=== PATIENT | male | born 1995 | race Caucasian/White ===

== ENCOUNTER 2018-11-30 17:21 | Emergency (ER) | payer SELFPAY ==
[2018-11-30 17:41] VITALS: BP 128/66
--- NOTE | 2018-11-30 17:54 | UC ---
Eye Complaint HPI - HPI Summary HPI Summary: 23 y/o male presents to the urgent care c/o left eye redness since yesterday. However this morning he woke up w/ yellowish crusting and mild swelling in his lower eyelid. Then it has been watery. Pt denies fever, MACKEY, eye pain, photophobia, visual disturbance, URI, SOB, chest pain, dizziness, abdominal pain , N/V/d. - History of Current Complaint Chief Complaint: UCEye Stated Complaint: LEFT EYE COMPLAINT Time Seen by Provider: 11/30/18 17:34 Hx Obtained From: Patient Onset/Duration: Gradual Onset, Lasting Days - 1 day, Still Present, Worse Since - this morning Timing: Constant Severity Initially: Mild Severity Currently: Mild Pain Intensity: 0 Pain Scale Used: 0-10 Numeric Location of Injury: Conjunctiva - left eye redness w/ yellowish drainage Character: Foreign Body Sensation Aggravating Factor(s): Blinking Alleviating Factor(s): Nothing Associated Signs And Symptoms: Positive: Drainage (Purulent) - yellowish, Swelling - mild. Negative: Photophobia, Drainage (Clear), Fever - Risk Factors Penetrating Injury Risk Factor: Negative - Allergies/Home Medications Allergies/Adverse Reactions: Allergies Allergy/AdvReac Type Severity Reaction Status Date / Time No Known Allergies Allergy Verified 11/30/18 17:39 PMH/Surg Hx/FS Hx/Imm Hx Previously Healthy: Yes - Pt denies PMHX - Surgical History Surgical History: None - Family History Known Family History: Positive: Diabetes - Social History Occupation: Employed Full-time Lives: With Family Alcohol Use: Occasionally Substance Use Type: None Smoking Status (MU): Never Smoked Tobacco Review of Systems All Other Systems Reviewed And Are Negative: Yes Constitutional: Positive: Negative Skin: Positive: Negative Eyes: Positive: Drainage - yellowish from left eye this morning wehn he woke up , Eye Redness - left eye and mild swelling ENT: Positive: Negative Respiratory: Positive: Negative Cardiovascular: Positive: Negative Gastrointestinal: Positive: Negative Genitourinary: Positive: Negative Motor: Positive: Negative Neurovascular: Positive: Negative Musculoskeletal: Positive: Negative Neurological: Positive: Negative Psychological: Positive: Negative Is Patient Immunocompromised?: No Physical Exam - Summary Physical Exam Summary: Vital Signs Reviewed: Yes General: Well appearing, well nourished male in no apparent pain distress Eyes: Positive: Left Conjunctiva Inflamed - Visual acuity: WNL,Visual cintron: full to confrontation.. PERRLA, EOMI intact w/out limitation or complaint of pain. eyelashes clear. mild tearing and yellowish drainagew/ mild swelling on the lower eyelid observed. No ciliary flush. No chemosis, No photophobia. Normal fundoscopic exam; no proptosis, exophthalmos, nystagmus. ENT: Positive: Normal ENT inspection, Hearing grossly normal, Pharynx normal, Nasal congestion, Nasal drainage - clear, TMs normal - B/L external ear canal clear , TM's WNL. Negative: Tonsillar swelling, Tonsillar exudate Neck: Positive: Supple, Nontender, No Lymphadenopathy Respiratory: Positive: Chest nontender, Lungs clear, Normal breath sounds, No respiratory distress Cardiovascular: Positive: RRR, No Murmur, Pulses Normal, Brisk Capillary Refill Abdomen Description: Positive: Nontender, No Organomegaly, Soft. Negative: CVA Tenderness (R), CVA Tenderness (L) Bowel Sounds: Positive: Present Musculoskeletal: Positive: Strength Intact, ROM Intact, No Edema Neurological Exam: Normal Psychological Exam: Normal Skin Exam: Normal Triage Information Reviewed: Yes Vital Signs: Initial Vital Signs Temp 98 F 11/30/18 17:39 Pulse 75 11/30/18 17:39 Resp 16 11/30/18 17:39 BP 128/66 11/30/18 17:39 Pulse Ox 100 11/30/18 17:39 Eye Complaint Course/Dx - Course Course Of Treatment: 23 y/o male presents to the urgent care c/o left eye redness since yesterday. However this morning he woke up w/ yellowish crusting and mild swelling in his lower eyelid. Then it has been watery. Pt denies fever, MACKEY, eye pain, photophobia, visual disturbance, URI, SOB, chest pain, dizziness, abdominal pain , N/V/d. Hx obtained. Pt w/ left acute bacterial conjunctivitis on examination. Pt Rx ciprofloxacin ophthalmic drops for his bacterial conjunctivitis. Pt advised to encourage hand washing to avoid spreading, and if symptoms do not improve, advised to return to the urgent care or f/u with PCP or Assistant Plant Control Operator Dr Villasenor in 3 days for further evaluation and treatment. D/ C instructions explained. Pt understood and agreed. - Differential Dx/Diagnosis Differential Diagnosis/HQI/PQRI: Conjunctivitis, Keratitis, Uveitis, Other Provider Diagnosis: Acute bacterial conjunctivitis of left eye Discharge - Sign-Out/Discharge Documenting (check all that apply): Patient Departure - d/c home All imaging exams completed and their final reports reviewed: No Studies - Discharge Plan Condition: Stable Disposition: HOME Prescriptions: Ciprofloxacin 0.3% OPTH.SHANTHI* [Cipro 0.3% Opth*] 1 drop LEFT EYE Q2H #1 btl Patient Education Materials: Conjunctivitis (ED) Forms: *Work Release Referrals: Quinn Fairchild MD [Primary Care Provider] - 3 Days Charlette Villasenor MD [Medical Doctor] - If Needed Additional Instructions: 1-Please apply ophthalmic drops as instructed and finish the full course of treatment to avoid recurrent infection. 2-If you do not improve or if symptoms worsen please f/u with floorworker distributor Dr Villasenor in 3 days for further evaluation and treatment - Billing Disposition and Condition Condition: STABLE Disposition: Home
== END 2018-11-30 18:27 | disposition home or self-care (01) ==
LOC: UCCORT 17:21
DX: H10.32 Unspecified acute conjunctivitis, left eye (principal)
CPT/HCPCS: 99202; G0463